=== PATIENT | female | born 1985 | race Caucasian/White ===

== ENCOUNTER 2018-11-21 23:47 | Inpatient (IN) | payer OTHER ==
[~2018-11-21] VITALS: Ht 162.6 cm; Wt 109.0 kg
[2018-11-21 23:54] VITALS: BP 129/63; PULSE 98; RESP 18
[2018-11-22] MEDS ORDERED: LACTATED RINGER'S 1,000 ML IV PRN (02:28)
[2018-11-22] MEDS ORDERED: METHYLERGONOVINE 0.2 MG INJ IM PRN ×2 (02:30→12:30)
[2018-11-22] MEDS ORDERED: OXYTOCIN 30 UNITS/LR 500 ML IV PRN ×2 (02:30→12:30)
[2018-11-22] MEDS ORDERED: LIDOCAINE 1% (MPF) 30 ML INJ INJ PRN (02:30)
[2018-11-22] MEDS ORDERED: OXYTOCIN 30 UNITS/LR 500 ML IV SCH ×4 (02:30→12:12)
[2018-11-22] MEDS ORDERED: BUTORPHANOL 2 MG INJ IV PRN (02:30)
[2018-11-22] MEDS ORDERED: MISOPROSTOL 200 MCG TAB PR PRN ×2 (02:30→12:30)
[2018-11-22] MEDS ORDERED: CARBOPROST 250 MCG INJ IM PRN ×2 (02:30→12:30)
[2018-11-22 02:46] VITALS: Ht 162.6 cm; Wt 109.0 kg
[2018-11-22] MEDS ORDERED: FOLI-49 PO (02:50)
[2018-11-22] MEDS: LACTATED RINGER'S 1,000 ML IV SCH ×2 (02:50→09:54)
[2018-11-22] MEDS ORDERED: PREN-93 PO (02:50)
[2018-11-22] MEDS ORDERED: FENTAnyl 2MCG/ML-ROPIV 0.2% 100 ML ONE (08:45)
[2018-11-22] MEDS ORDERED: MINERAL OIL LIGHT 10 ML VIAL TOP ONE (10:30)
[2018-11-22] MEDS: LACTATED RINGER'S 1,000 ML IV* SCH ×2 (12:12→20:12)
[2018-11-22] MEDS ORDERED: MAGNESIUM HYDROXIDE 30ML CUP PO PRN (12:30)
[2018-11-22] MEDS ORDERED: METHYLERGONOVINE 0.2 MG TAB PO PRN (12:30)
[2018-11-22] MEDS ORDERED: WITCH HAZEL/GLYCERIN PAD PR PRN (12:30)
[2018-11-22] MEDS ORDERED: LANOLIN HPA 1 PKT TOP PRN (12:30)
[2018-11-22] MEDS ORDERED: ZOLPIDEM 5 MG TAB PO PRN (12:30)
[2018-11-22] MEDS ORDERED: NA PHOSPHATE/BIPHOS 133 ML ENEMA PR PRN (12:30)
[2018-11-22] MEDS ORDERED: DIPHENHYDRAMINE 25 MG CAP PO PRN (12:30)
[2018-11-22] MEDS ORDERED: HYDROCODONE/APAP (5/325) TAB PO PRN ×2 (12:30)
[2018-11-22] MEDS ORDERED: ONDANSETRON 4 MG INJ IV PRN (12:30)
[2018-11-22] MEDS ORDERED: BENZOCAINE 20% 56 ML SPRAY TOP PRN (12:30)
--- NOTE | 2018-11-22 12:36 | PREAC ---
Date/Time of Note Date/Time of Note DATE: 11/22/18 TIME: 12:33 Anesthesia Eval and Record Evaluation Time Pre-Procedure Interview DATE: 11/22/18 TIME: 08:12 Age 33 Sex female NPO: 8 hrs Preoperative diagnosis iup @ 38.5 wks., labor, Planned procedure tejal Past Medical History Past Medical History: Includes : : (7), Para: (4), Gestational age: (38.5 wks.) Surgery & Anesthesia Issues No known issue Meds Anticoagulation: No Beta Mary within 24 hr: No Reason Beta Mary not given: Pt. not on B-Mary Reported Medications Folic Acid* (Folic Acid*) 1 Mg Tablet, 1 MG PO DAILY, TAB 11/22/18 Vit No.124/Iron/FA ( Vitamin Tablet) 1 Each Tablet, 1 EACH PO, TAB 11/22/18 [None] No Conflict Check 11/09/09 Current Medications Lactated Ringer's 1,000 ml @ 125 mls/hr Q8H IV Last administered on 11/22/18at 09:54; Admin Dose 125 MLS/HR; Start 11/22/18 at 02:28 Butorphanol Tartrate (Stadol) 2 mg Q2H PRN IV .PAIN; Start 11/22/18 at 02:30 Lidocaine (Xylocaine 1% (Mpf)) 30 ml ONCE PRN INJ .EPISIOTOMY; Start 11/22/18 at 02:30 Oxytocin/Lactated Ringer's 500 ml @ 500 mls/hr ONCE POST IV Last administered on 11/22/18at 11:46; Admin Dose 500 MLS/HR; Start 11/22/18 at 02:30 Oxytocin/Lactated Ringer's 500 ml @ 125 mls/hr POST IV Last administered on 11/22/18at 11:47; Admin Dose 125 MLS/HR; Start 11/22/18 at 02:30 Ibuprofen (Motrin) 600 mg ONCE PRN PO .PAIN 1-5; Start 11/22/18 at 02:30 Lactated Ringer's 1,000 ml @ 2,000 mls/hr Q30M PRN IV .ANESTHESIA Last administered on 11/22/18at 08:52; Admin Dose 2,000 MLS/HR; Start 11/22/18 at 02:28 Oxytocin/Lactated Ringer's 500 ml @ 0 mls/hr ONCE PRN IV .VAGINAL BLEEDING; Start 11/22/18 at 02:30 Methylergonovine Maleate (Methergine) 0.2 mg ONCE PRN IM .VAGINAL BLEEDING; Start 11/22/18 at 02:30 Carboprost Tromethamine (Hemabate) 250 mcg ONCE PRN IM .VAGINAL BLEEDING; Start 11/22/18 at 02:30 Misoprostol (Cytotec) 1,000 mcg ONCE PRN SC .VAGINAL BLEEDING; Start 11/22/18 at 02:30 Oxytocin/Lactated Ringer's 500 ml @ 0 mls/hr FOR AUGMENTATION IV Last administered on 11/22/18at 03:05; Admin Dose 2 MLS/HR; Start 11/22/18 at 03:00 Oxytocin/Lactated Ringer's 500 ml @ 50 mls/hr Q10H IV ; Start 11/22/18 at 12:12; Stop 11/22/18 at 22:11 Lactated Ringer's 1,000 ml @ 125 mls/hr Q8H IV* ; Start 11/22/18 at 12:12 Methylergonovine Maleate (Methergine) 0.2 mg Q6H PRN PO .VAGINAL BLEED; Start 11/22/18 at 12:30 Ibuprofen (Motrin) 600 mg Q6 PRN PO MILD PAIN LEVEL 1-3; Start 11/22/18 at 12:30 Acetaminophen/ Hydrocodone Bitart ([place] (5/325)) 1 tab Q4H PRN PO MODERATE PAIN LEVEL 4-6; Start 11/22/18 at 12:30 Acetaminophen/ Hydrocodone Bitart ([place] (5/325)) 2 tab Q4H PRN PO SEVERE PAIN LEVEL 7-10; Start 11/22/18 at 12:30 Ondansetron HCl (Zofran Inj) 4 mg Q6H PRN IV NAUSEA/VOMITING; Start 11/22/18 at 12:30 Diphenhydramine HCl (Benadryl) 25 mg Q6H PRN PO .PRUTITUS; Start 11/22/18 at 12:30 Zolpidem Tartrate (Ambien) 5 mg QHS PRN PO .INSOMNIA; Start 11/22/18 at 12:30 Senna/Docusate Sodium (Senokot-S) 1 tab BID PO ; Start 11/22/18 at 21:00 Magnesium Hydroxide (Milk Of Mag) 30 ml Q12H PRN PO .CONSTIPATION; Start 11/22/18 at 12:30 Sodium Biphosphate/ Sodium Phosphate (Fleet Enema) 133 ml DAILY PRN SC .CONSTIPATION; Start 11/22/18 at 12:30 Witch Yoanna/ Glycerin (Tucks Pads) 1 pad BEDSIDE MEDICATION PRN SC .HEMORRHOID/EPISIOTOMY PAIN; Start 11/22/18 at 12:30 Benzocaine (Dermoplast [place]) 1 spray BEDSIDE MEDICATION PRN TOP .HEMMORHOID/EPISIOTOMY PAIN; Start 11/22/18 at 12:30 Lanolin (Lanolin Hpa) 1 applic BEDSIDE MEDICATION PRN TOP .NIPPLES; Start 11/22/18 at 12:30 Measles/Mumps/ Rubella Vaccine Live (Mmr Ii Vaccine) 0.5 ml ONCE ONCE SC* ; Start 11/24/18 at 09:00; Stop 11/24/18 at 09:01 Diphtheria/ Tetanus/Acell Pertussis (Adacel) 0.5 ml ONCE ONCE IM* ; Start 11/24/18 at 09:00; Stop 11/24/18 at 09:01 Varicella Virus Vaccine Live (Varivax Vaccine With Diluent) 1,350 unit ONCE ONCE SC* ; Start 11/24/18 at 09:00; Stop 11/24/18 at 09:01 Oxytocin/Lactated Ringer's 500 ml @ 0 mls/hr ONCE PRN IV .VAGINAL BLEEDING; Start 11/22/18 at 12:30 Methylergonovine Maleate (Methergine) 0.2 mg ONCE PRN IM .VAGINAL BLEEDING; Start 11/22/18 at 12:30 Carboprost Tromethamine (Hemabate) 250 mcg ONCE PRN IM .VAGINAL BLEEDING; Start 11/22/18 at 12:30 Misoprostol (Cytotec) 1,000 mcg ONCE PRN SC .VAGINAL BLEEDING; Start 11/22/18 at 12:30 Meds reviewed: Yes Allergies Coded Allergies: No Known Drug Allergy (Verified Allergy, Unknown, 11/03/09) Allergies Reviewed: Yes Labs/Studies Labs Reviewed: Reviewed by anesthesiologist Result Diagram: 11/22/18 0250 Laboratory Tests 11/22/18 02:50 Blood Bank Test 11/22/18 02:50 11/22/18 12:12 Antibody Screen NEGATIVE Blood Type A NEGATIVE Rh Immune Globulin Candidate NO Blood Product Summary Counts test: Positive Studies: ECG (n/a), CXR (n/a) Pre-procedure Exam Last vitals Vital Signs Date Temp Pulse Resp B/P (MAP) Pulse Ox O2 O2 Flow FiO2 Time Delivery Rate 11/21/18 98.6 98 18 129/63 Room Air 23:54 (85) Airway: Adequate mouth opening, Adequate thyromental dist Mallampati: Mallampati II Teeth: Normal Lung: Normal Heart: Normal ASA Physical Status ASA physical status: 2 Emergency: E Planned Anesthetic Neuraxial: Epidural Planned Pain Management Epidural, Local by surgeon Pre-operative Attestations Prior to commencing anesthesia and surgery, the patient was re-evaluated, there was verification of: *The patient's identity *The results of appropriate recent lab work and preoperative vital signs *The above evaluation not changing prior to induction *Anesthetic plan, risk benefits, alternative and complications discussed with patient/family; questions answered; patient/family understands, accepts and wishes to proceed. Leather Scraper used NEHEMIAH BAH MD November 22, 2018 12:36
[2018-11-22] MEDS: IBUPROFEN 600 MG TAB PO PRN ×2 (12:56→17:49)
--- NOTE | 2018-11-22 13:17 | OPPN ---
Date/Time of Note Date/Time of Note DATE: 11/23/18 TIME: 11:00 Anesthesia Follow up Anesthesia Follow up Last documented vital signs Vital Signs Date Temp Pulse Resp B/P (MAP) Pulse Ox O2 O2 Flow FiO2 Time Delivery Rate 11/21/18 98.6 98 18 129/63 Room Air 23:54 (85) Respiratory function: WNL Cardiovascular function: WNL NEHEMIAH BAH MD November 22, 2018 13:17
[2018-11-22 13:20] VITALS: BP 114/52; PULSE 68; RESP 19
[2018-11-22] MEDS ORDERED: FENTAnyl 2MCG/ML-ROPIV 0.2% 100 ML BAG EPI SCH (13:30)
[2018-11-22] MEDS ORDERED: NALOXONE (0.4 MG/ML) INJ IV PRN (13:30)
[2018-11-22 16:00] VITALS: BP 110/57; PULSE 80; RESP 17
--- NOTE | 2018-11-22 16:07 | OPR ---
DATE OF OPERATION: 11/22/2018 This is a 33-year-old lady, 7, para 4, EDC 11/29/2018 at 39 weeks , admitted in labor . HISTORY OF PRESENT ILLNESS: See dictated history and physical. PHYSICAL EXAMINATION: See dictated history and physical. ADMITTING DIAGNOSIS: A 39 weeks' intrauterine in labor. PROGRESS OF LABOR: See dictated history and physical. The patient progressed well. She received la bor epidural. She had a normal spontaneous vaginal delivery on 11/22/2018 at 11:25 a.m. delivering a healthy baby boy, Apgars 9 and 9, weighing 6 pounds 10 ounces, 3005 grams, 18-1/2 inches long over i ntact perineum. The placenta was delivered spontaneously and complete. Manual exploration of the ut erus revealed no membranes left behind. Cervix and vagina were free of hematoma. The position was a direct occiput posterior manually rotated to direct occiput anterior. The patient's cervix, v agina, and vulva were free of hematoma. The position was as mentioned above. The patient tolerated the delivery well. Estimated blood loss was about 300 mL. Vital signs were stable during and after the procedure. Dictated By: YANELIS MANLEY/JACQUELYN Conf#: [id number] DID#: [id number]
--- NOTE | 2018-11-22 16:07 | PREOPHP ---
DATE OF ADMISSION: 11/22/2018 HISTORY OF PRESENT ILLNESS: This is a 33-year-old lady, 7, para 4 with 1 spontaneous abortio n and 1 therapeutic . Her EDC is 11/29/2018 at 39 weeks , admitted to [facility] in labor. She had care few times in my [place] office and the care was u neventful. She started to have contractions about a few hours prior to admission and got worse up to the time of admission. PAST PERSONAL HISTORY: No history of TB, asthma nor allergy. SOCIAL HISTORY: Patient does not smoke. She does not drink. MEDICATIONS: She does not take any drugs except her iron and vitamins. GYNECOLOGICAL HISTORY: She had menarche at the age of 14, every 28 days interval, 3 to 4 days durati on, and moderate in amount. FAMILY HISTORY: Father has diabetes and mother has hypertension. She is 7, para 4, her firs t delivery was in 2001, second 2004, third 2008, and fourth 2014, all normal deliveries. The largest baby weighed 8 pounds. REVIEW OF SYSTEMS: CARDIOVASCULAR: No chest pains. RESPIRATORY: No cough. GASTROINTESTINAL: No diarrhea, no vomiting. GENITOURINARY: No dysuria. PHYSICAL EXAMINATION: GENERAL: Reveals a conscious, coherent lady, in not acute distress. VITAL SIGNS: Her blood pressure 120/80, pulse rate 80 per minute, respirations 16 per minute. BREASTS, HEART AND LUNGS: Within normal limits. ABDOMEN: Soft. No organomegaly. Fundic height 37 cm. heart tones 140 per minute. PELVIC: On admission revealed the cervix to be 2 to 3 cm dilated, 80% effaced, station -2 in cephali c presentation with the bag of water intact. EXTREMITIES: No pedal edema. ADMITTING DIAGNOSIS: A 39 weeks' intrauterine in labor. The plans of delivery were explai yazmin to the patient as to go for vaginal delivery. The risks, benefits, and alternatives to vaginal d elivery, a explained to the patient. The patient wanted to go for vaginal delivery, so the patient was started on Pitocin augmentation and she progressed well. She received labor epidural at 9:45 a.m. I evaluated the patient and she was 4 to 5 cm dilated, 100% effaced, station 0 with the b ag of water intact, so she had artificial rupture of membrane. scalp electrodes and IPC was in serted. Patient progressed well, and when she was 8 to 9 cm, she was having some variable decelerati ons, oxygen and change of position as well as amnioinfusion was given and the patient progressed well and she went into complete dilatation and then the epidural was stopped and Pitocin was restarted. Dictated By: YANELIS MANLEY/JACQUELYN Conf#: [id number] DID#: [id number]
[2018-11-22 20:00] VITALS: BP 107/55; PULSE 77; RESP 20
[2018-11-22] MEDS: SENNA/DOCUSATE NA (8.6MG/50MG) TAB PO SCH (21:50)
[2018-11-23] MEDS: IBUPROFEN 600 MG TAB PO PRN ×5 (01:47→23:37)
[2018-11-23 04:00] VITALS: BP 123/51; PULSE 73; RESP 20
[2018-11-23] MEDS: LACTATED RINGER'S 1,000 ML IV* SCH ×2 (04:12→12:12)
[2018-11-23 07:45] VITALS: BP 95/50; RESP 18
[2018-11-23] MEDS: SENNA/DOCUSATE NA (8.6MG/50MG) TAB PO SCH ×2 (08:55→20:49)
--- NOTE | 2018-11-23 13:21 | PN ---
Date/Time of Note Date/Time of Note DATE: 11/23/18 TIME: 13:19 Assessment/Plan VTE Prophylaxis Risk score (from Ns)>0 risk: 1 SCD applied (from Ns): No SCD contraindicated: low risk/ambulating Pharmacological prophylaxis: NA/contraindicated Pharm contraindication: low risk/ambulating Lines/Catheters IV C[facility]ter Type [facility]from [facility]): Peripheral IV Assessment/Plan Assessment/Plan POST DAY 1 CHRONIC IRON DEFICIENCY ANEMIA HOME TOMORROW RETURN TO CLINIC IN 2 WEEKS CONTINUE WITH VITAMINS OD AND FERROUS SULFATE PO TID DIET ADVISED COUNSELED INSTRUCTED CALL OFFICE IF THERE IS ANY PROBLEMS OR CONCERN Result Diagram: 11/23/18 0709 Results 24hrs Laboratory Tests Test 11/23/18 07:09 White Blood Count 10.1 Red Blood Count 3.49 L Hemoglobin 9.1 L Hematocrit 29.0 L Mean Corpuscular Volume 83.1 Mean Corpuscular Hemoglobin 26.1 L Mean Corpuscular Hemoglobin Concent 31.4 L Red Cell Distribution Width 14.7 H Platelet Count 259 # Mean Platelet Volume 10.4 Immature Granulocytes % 0.500 H Neutrophils % 67.9 Lymphocytes % 22.9 Monocytes % 7.5 Eosinophils % 1.0 Basophils % 0.2 Nucleated Red Blood Cells % 0.0 Immature Granulocytes # 0.050 H Neutrophils # 6.9 Lymphocytes # 2.3 Monocytes # 0.8 Eosinophils # 0.1 Basophils # 0.0 Nucleated Red Blood Cells # 0.0 Subjective 24 Hr Interval Summary Free Text/Dictation FEELS GOOD, GOOD URINE OUTPUT, GOOD BOWEL MOVEMENT Exam/Review of Systems Exam Vitals Vital Signs Date Temp Pulse Resp B/P (MAP) Pulse Ox O2 O2 Flow FiO2 Time Delivery Rate 11/23/18 97.9 18 95/50 (65) Room Air 07:45 11/23/18 73 04:00 Intake and Output 11/22/18 11/22/18 11/23/18 1515:00 23:00 07:00 IntakeIntake Total 375 ml 375 ml OutputOutput Total 1025 ml 500 ml BalanceBalance -650 ml -125 ml Exam VITAL SIGNS STABLE: YES AFEBRILE: YES BREAST NOT ENGORGED, NON-TENDER, NO APPRECIABLE MASS: YES LUNGS CLEAR, NO RALES, WHEEZES, RHONCHI: YES SINUS RHYTHM WITHOUT MURMUR: YES ABDOMEN: NON-TENDER FUNDUS: BELOW UMBILICUS BOWEL SOUNDS: PRESENT UTERUS: FIRM INTACT PERINEUM: YES LOCHIA: LIGHT DEEP TENDON REFLEXES: 0 EXTREMITIES: NO CALF TENDERNESS EDEMA SCALE: NONE Results Results 24hrs Laboratory Tests Test 11/23/18 07:09 White Blood Count 10.1 Red Blood Count 3.49 L Hemoglobin 9.1 L Hematocrit 29.0 L Mean Corpuscular Volume 83.1 Mean Corpuscular Hemoglobin 26.1 L Mean Corpuscular Hemoglobin Concent 31.4 L Red Cell Distribution Width 14.7 H Platelet Count 259 # Mean Platelet Volume 10.4 Immature Granulocytes % 0.500 H Neutrophils % 67.9 Lymphocytes % 22.9 Monocytes % 7.5 Eosinophils % 1.0 Basophils % 0.2 Nucleated Red Blood Cells % 0.0 Immature Granulocytes # 0.050 H Neutrophils # 6.9 Lymphocytes # 2.3 Monocytes # 0.8 Eosinophils # 0.1 Basophils # 0.0 Nucleated Red Blood Cells # 0.0 Medications Medication Current Medications Butorphanol Tartrate (Stadol) 2 mg Q2H PRN IV .PAIN; Start 11/22/18 at 02:30 Lidocaine (Xylocaine 1% (Mpf)) 30 ml ONCE PRN INJ .EPISIOTOMY; Start 11/22/18 at 02:30 Oxytocin/Lactated Ringer's 500 ml @ 500 mls/hr ONCE POST IV Last administered on 11/22/18 11:46; Admin Dose 500 MLS/HR; Start 11/22/18 at 02:30 Oxytocin/Lactated Ringer's 500 ml @ 125 mls/hr POST IV Last administered on 11/22/18 11:47; Admin Dose 125 MLS/HR; Start 11/22/18 at 02:30 Ibuprofen (Motrin) 600 mg ONCE PRN PO .PAIN 1-5 Last administered on 11/23/18 01:47; Admin Dose 600 MG; Start 11/22/18 at 02:30 Lactated Ringer's 1,000 ml @ 2,000 mls/hr Q30M PRN IV .ANESTHESIA Last administered on 11/22/18 08:52; Admin Dose 2,000 MLS/HR; Start 11/22/18 at 02:28 Oxytocin/Lactated Ringer's 500 ml @ 0 mls/hr FOR AUGMENTATION IV Last administered on 5/5/19at 03:05; Admin Dose 2 MLS/HR; Start 11/22/18 at 03:00 Lactated Ringer's 1,000 ml @ 125 mls/hr Q8H IV* ; Start 11/22/18 at 12:12 Methylergonovine Maleate (Methergine) 0.2 mg Q6H PRN PO .VAGINAL BLEED; Start 11/22/18 at 12:30 Ibuprofen (Motrin) 600 mg Q6 PRN PO MILD PAIN LEVEL 1-3 Last administered on 11/23/18at 07:48; Admin Dose 600 MG; Start 11/22/18 at 12:30 Acetaminophen/ Hydrocodone Bitart ([place] (5/325)) 1 tab Q4H PRN PO MODERATE P AIN LEVEL 4-6; Start 11/22/18 at 12:30 Acetaminophen/ Hydrocodone Bitart ([place] (5/325)) 2 tab Q4H PRN PO SEVERE PAIN LEVEL 7-10; Start 11/22/18 at 12:30 Ondansetron HCl (Zofran Inj) 4 mg Q6H PRN IV NAUSEA/VOMITING; Start 11/22/18 at 12:30 Diphenhydramine HCl (Benadryl) 25 mg Q6H PRN PO .PRUTITUS; Start 11/22/18 at 12:30 Zolpidem Tartrate (Ambien) 5 mg QHS PRN PO .INSOMNIA; Start 11/22/18 at 12:30 Senna/Docusate Sodium (Senokot-S) 1 tab BID PO Last administered on 11/23/18at 08:55; Admin Dose 1 TAB; Start 11/22/18 at 21:00 Magnesium Hydroxide (Milk Of Mag) 30 ml Q12H PRN PO .CONSTIPATION; Start 11/22/18 at 12:30 Sodium Biphosphate/ Sodium Phosphate (Fleet Enema) 133 ml DAILY PRN NM .CONSTIPATION; Start 11/22/18 at 12:30 Witch Yoanna/ Glycerin (Tucks Pads) 1 pad BEDSIDE MEDICATION PRN NM .HEMO RRHOID/EPISIOTOMY PAIN; Start 11/22/18 at 12:30 Benzocaine (Dermoplast [place]) 1 spray BEDSIDE MEDICATION PRN TOP .HEMMORHOID/EPISIOTOMY PAIN; Start 11/22/18 at 12:30 Lanolin (Lanolin Hpa) 1 applic BEDSIDE MEDICATION PRN TOP .NIPPLES; Start 11/22/18 at 12:30 Measles/Mumps/ Rubella Vaccine Live (Mmr Ii Vaccine) 0.5 ml ONCE ONCE SC* ; Start 11/24/18 at 09:00; Stop 11/24/18 at 09:01 Diphtheria/ Tetanus/Acell Pertussis (Adacel) 0.5 ml ONCE ONCE IM* ; Start 11/24/18 at 09:00; Stop 11/24/18 at 09:01 Varicella Virus Vaccine Live (Varivax Vaccine With Diluent) 1,350 unit ONCE ONCE SC* ; Start 11/24/18 at 09:00; Stop 11/24/18 at 09:01 Oxytocin/Lactated Ringer's 500 ml @ 0 mls/hr ONCE PRN IV .VAGINAL BLEEDING; Start 11/22/18 at 12:30 Methylergonovine Maleate (Methergine) 0.2 mg ONCE PRN IM .VAGINAL BLEEDING; Start 11/22/18 at 12:30 Carboprost Tromethamine (Hemabate) 250 mcg ONCE PRN IM .VAGINAL BLEEDING; Start 11/22/18 at 12:30 Misoprostol (Cytotec) 1,000 mcg ONCE PRN NM .VAGINAL BLEEDING; Start 11/22/18 at 12:30 Naloxone HCl (Narcan) 0.1 mg Q2M PRN IV .RESP RATE; Start 11/22/18 at 13:30; Stop 11/23/18 at 13:29 Fentanyl/ Ropivacaine 100 ml EPIDURAL INFUSION EPI ; Start 11/22/18 at 13:30 YANELIS CHAKRABORTY MD November 23, 2018 13:21
[2018-11-23 15:55] VITALS: BP 110/53; PULSE 84; RESP 18
[2018-11-23 19:40] VITALS: BP 112/58; PULSE 76; RESP 17
[2018-11-24 03:30] VITALS: BP 103/63; PULSE 73; RESP 17
[2018-11-24] MEDS: IBUPROFEN 600 MG TAB PO PRN ×2 (05:55→12:13)
[2018-11-24 08:00] VITALS: BP 124/67; PULSE 70; RESP 18
[2018-11-24] MEDS ORDERED: VARICELLA VACCINE LIVE/PF 1,350 UNIT/0.5 ML ML SC* ONE (09:00)
[2018-11-24] MEDS ORDERED: MEASLES,MUMPS,RUBELLA VACCINE INJ SC* ONE (09:00)
[2018-11-24] MEDS ORDERED: DIPHTH/TET/ACEL PERTUSS (ADULT) 0.5 ML VIAL IM* ONE (09:00)
[2018-11-24] MEDS: SENNA/DOCUSATE NA (8.6MG/50MG) TAB PO SCH (09:44)
[2018-11-24] MEDS ORDERED: FERR325T5 PO (12:44)
[2018-11-24] MEDS ORDERED: FER325 PO (12:45)
--- NOTE | 2018-11-25 15:22 | DELSUM ---
Delivery Summary A-C Datetime Report Generated by CPN: 11/25/2018 15:22 DELIVERY PERSONNEL Reliability Technician: Mcneill, [place] MATERNAL INFORMATION Delivery Anesthesia: Epidural Medications in Delivery: PITOCIN 30U WITH LR Delivery QBL (ml): 350 Placenta Cultured: No RN Comments: ETHE RN ORT LABOR SUMMARY EDC: 11/29/2018 00:00 No. Babies in Womb: 1 Attempted: No Labor Anesthesia: Epidural LABOR INFORMATION Onset of Labor: 11/21/2018 06:00 Complete Dilatation: 11/22/2018 11:17 Oxytocin: Augmentation Group B Beta Strep: Negative MEMBRANES Membranes Rupture Method: Artificial Rupture of Membranes: 11/22/2018 09:36 Length of Rupture (hr): 1.82 Amniotic Fluid Color: Clear Amniotic Fluid Amount: Moderate Amniotic Fluid Odor: None STAGES OF LABOR Stage 1 hr: 29 Stage 1 min: 17 Stage 2 hr: 0 Stage 2 min: 8 Stage 3 hr: 0 Stage 3 min: 3 Total Time in Labor hr: 29 Total Time in Labor min: 28 VAGINAL DELIVERY Episiotomy: None Laceration Extension: N/A Laceration Type: None Laceration Repair: Not Applicable Initial Vag Sponge Count: 10 Final Vag Sponge Count: 10 Sponge Count Correct: Yes BABY A INFORMATION Delivery Date/Time: 11/22/2018 11:25 Method of Delivery: Vaginal Born in Route : Yes : N/A Forceps: N/A Vacuum Extraction: N/A Shoulder Dystocia : N/A SHOULDER DYSTOCIA BABY A Infant Delivery Date/Time: 11/22/2018 11:25 PRESENTATION/POSITION BABY A Presentation: Cephalic Cephalic Presentation: Vertex Vertex Position: Left Occipital Anterior Breech Presentation: N/A PLACENTA INFORMATION BABY A Placenta Delivery Time : 11/22/2018 11:28 Placenta Method of Delivery: Spontaneous Placenta Status: Delivered SCORES BABY A Heart Rate 1 min: >100 bpm Resp Effort 1 min: Good Cry Reflex Irritability 1 min: Cough/Sneeze/Pulls Away Muscle Tone 1 min: Active Motion Color 1 min: Body [place], Extremit Blue Resuscitation Effort 1 min: Tactile Stimulation SCORE 1 MIN: 9 Heart Rate 5 min: >100 bpm Resp Effort 5 min: Good Cry Reflex Irritability 5 min: Cough/Sneeze/Pulls Away Muscle Tone 5 min: Active Motion Color 5 min: Body [place], Extremit Blue Resuscitation Effort 5 min: Tactile Stimulation SCORE 5 MIN: 9 INFANT INFORMATION BABY A Gestational Age at Delivery: 39.0 Gestational Status: Full Term- 39- 40.6 Weeks Infant Outcome : Liveborn Infant Condition : Stable Infant Sex: Male IDENTIFICATION/MEDS BABY A ID Band Number: [id number] ID Band Location: Left Arm Sensor Applied: Yes Sensor Number: [id number] Sensor Location : Right Leg Vitamin K Given : Not Given Erythromycin Given: Not Given WEIGHT/LENGTH BABY A Birthweight (gm): 3005 Weight (lb): 6 Weight (oz): 10 Length (in): 18.50 Length (cm): 46.99 CORD INFORMATION BABY A No. Cord Vessels: 3 Nuchal Cord : N/A Nuchal Cord- Other: N/A Cord Blood Taken: Yes Suction: Mouth; Nose
--- NOTE | 2018-11-29 06:14 | DS ---
DATE OF ADMISSION: 11/22/2018 DATE OF DISCHARGE: 11/24/2018 This is a 33-year-old lady, 7, para 4 with 1 spontaneous , 1 therapeutic , ED C is 11/29/2018, admitted to labor and delivery area in labor. HISTORY OF PRESENT ILLNESS: See dictated history and physical. PHYSICAL EXAMINATION: See dictated history and physical. ADMITTING DIAGNOSIS: 39 weeks' intrauterine in labor. PROGRESS OF LABOR: See dictated history and physical. The patient progressed well. She received la bor epidural and then she progressed well and had a normal spontaneous vaginal delivery on 11/22/2018 at 11:25 a.m. delivering a healthy baby boy, Apgars 9 and 9, weighing 6 pounds 10 ounces over intact perineum. She tolerated the delivery well. She did have good course. The diet was on g eneral diet. She has good bowel movement . She was discharged home on general diet and ac tivity was restricted. She was counseled. She was instructed. She was discharged home in good and stable condition. She was told to continue to take her iron and vitamins at home. Hematocrit on dis charge was 29, hemoglobin 9.1. FINAL DIAGNOSES: A 39 weeks' intrauterine in labor, delivered and chronic iron deficiency anemia. Dictated By: YANELIS MANLEY/JACQUELYN Conf#: [id number] DID#: [id number]
== END 2018-11-24 15:22 | disposition home or self-care (01) | DRG 807 ==
LOC: OBT 23:47 → L-D 23:51 → OBT 11-22 02:20 → PP1 11-22 13:13
PROVIDERS: ADMIT Obstetrics & Gynecology; ATTEND Obstetrics & Gynecology
PROC: 10E0XZZ Delivery of Products of Conception, External Approach (ICD-10-PCS; principal; 2018-11-22)
PROC: 10907ZC Drainage of Amniotic Fluid, Therapeutic from Products of Conception, Via Natural or Artificial Opening (ICD-10-PCS; 2018-11-22)
PROC: 10H073Z Insertion of Monitoring Electrode into Products of Conception, Via Natural or Artificial Opening (ICD-10-PCS; 2018-11-22)
PROC: 4A1H74Z Monitoring of Products of Conception, Cardiac Electrical Activity, Via Natural or Artificial Opening (ICD-10-PCS; 2018-11-22)
PROC: 10H07YZ Insertion of Other Device into Products of Conception, Via Natural or Artificial Opening (ICD-10-PCS; 2018-11-22)
DX: O76 Abnormality in fetal heart rate and rhythm complicating labor and delivery (principal); Z37.0 Single live birth; O99.03 Anemia complicating the puerperium; D50.9 Iron deficiency anemia, unspecified; Z3A.39 39 weeks gestation of pregnancy
CPT/HCPCS: 62322; 76815; 76818; 85025; 85610; 85730; 86592; 86850; 86885; 86900; 86901; 90716; 99464; G0463; J2590; J2790; J3010; J7120